=== PATIENT | female | born 1975 | race Caucasian/White ===

== ENCOUNTER 2022-01-07 17:11 | Emergency (ER) | payer OTHER, SELFPAY ==
[2022-01-07 17:19] VITALS: BP 155/92; PULSE 78; RESP 18; TEMP 36.8; O2SAT 98; BMI 32.5
[2022-01-07] MEDS: ACETAMINOPHEN 325 MG TABLET 975 MG PO (18:15)
--- NOTE | 2022-01-07 18:50 | ED.WOUNDLAC ---
HPI - Wound/Laceration <Martin Weaver PA-C - Last Filed: 01/07/22 19:17> General Chief Complaint: Wound/Laceration Stated Complaint: Left leg lac Time Seen by Provider: 01/07/22 17:35 Source: patient Mode of arrival: Ambulatory History of Present Illness HPI narrative: Patient is a 46-year-old female who reports to the ER today complaining of a cut to her left leg. Patient states she cut her leg on a toilet earlier today. patient states the toilet was plastic and did not contain any cement or metal. Patient also states her last tetanus shot was about 3 years ago. Patient denies any numbness or tingling in the leg and denies any other concerns. Location: other (Left leg) Extremity Location: Left: lower leg Review of Systems <Martin Weaver PA-C - Last Filed: 01/07/22 19:17> Review of Systems ROS Unobtainable: All systems reviewed & are unremarkable except as noted in HPI and below Patient History <Martin Weaver PA-C - Last Filed: 01/07/22 19:17> Social History Smoking Status: Never smoker Smoking Status: Never smoker alcohol intake frequency: a few times a week Alcohol type: wine Exam <Martin Weaver PA-C - Last Filed: 01/07/22 19:17> Initial Vital Signs Initial Vital Signs: Vital Signs Temperature 98.2 F 01/07/22 17:19 Pulse Rate 78 01/07/22 17:19 Respiratory Rate 18 01/07/22 17:19 Blood Pressure 155/92 H 01/07/22 17:19 Pulse Oximetry 98 01/07/22 17:19 Oxygen Delivery Method 01/07/22 17:19 Skin Other: Patient has 6 cm lateral laceration to the left lateral lower leg. Areas about 3-4 inches above the lateral malleolus. Depth of laceration is about 0.5-1 cm. Area has minimal swelling and minor drainage. <NNEKA Odell - Last Filed: 01/07/22 19:28> Initial Vital Signs Initial Vital Signs: Vital Signs Temperature 98.2 F 01/07/22 17:19 Pulse Rate 78 01/07/22 17:19 Respiratory Rate 18 01/07/22 17:19 Blood Pressure 155/92 H 01/07/22 17:19 Pulse Oximetry 98 01/07/22 17:19 Oxygen Delivery Method 01/07/22 17:19 <Nirav Overton MD - Last Filed: 01/13/22 04:56> Initial Vital Signs Initial Vital Signs: Vital Signs Temperature 98.2 F 01/07/22 17:19 Pulse Rate 78 01/07/22 17:19 Respiratory Rate 18 01/07/22 17:19 Blood Pressure 155/92 H 01/07/22 17:19 Pulse Oximetry 98 01/07/22 17:19 Oxygen Delivery Method 01/07/22 17:19 Procedures <Martin Weaver PA-C - Last Filed: 01/07/22 19:17> Laceration Repair Laceration 1: Time of procedure: 18:56 Site: lower extremity Side (If applicable): left Size (cm): 6 Description: other (Lateral laceration) Depth: simple, single layer Local Anesthetic: lidocaine 2% and with epi Amount of anesthesia used (mL): 4 Skin layer closed with: other (Monosof) Skin layer suture size: other (2) Number of sutures: 6 Technique: simple, interrupted Course <Martin Weaver PA-C - Last Filed: 01/07/22 19:17> Orders Ordered: Discontinued Medications Acetaminophen (Acetaminophen 325 Mg Tablet) 975 mg PO NOW ONE Stop: 01/07/22 17:34 Last Admin: 01/07/22 18:15 Dose: 975 mg Documented By: VAL Bacitracin (Bacitracin Oint 0.9 Gm Pckt) 1 applic TOP NOW ONE Stop: 01/07/22 18:44 Last Admin: 01/07/22 19:01 Dose: 1 applic Documented By: IGLESIA Lidocaine/Epinephrine (Lidocaine 2% W/Epi Inj) 1 ml INJ INTRA-OP ONE Stop: 01/07/22 17:49 Last Admin: 01/07/22 19:02 Dose: 1 ml Documented By: IGLESIA Vital Signs Vital signs: Vital Signs - 8 hr 01/07/22 17:19 Temperature 98.2 F Pulse Rate 78 Respiratory Rate 18 Blood Pressure 155/92 H Pulse Oximetry 98 Oxygen Delivery Method Room Air <NNEKA Odell - Last Filed: 01/07/22 19:28> Orders Ordered: Discontinued Medications Acetaminophen (Acetaminophen 325 Mg Tablet) 975 mg PO NOW ONE Stop: 01/07/22 17:34 Last Admin: 01/07/22 18:15 Dose: 975 mg Documented By: VAL Bacitracin (Bacitracin Oint 0.9 Gm Pckt) 1 applic TOP NOW ONE Stop: 01/07/22 18:44 Last Admin: 01/07/22 19:01 Dose: 1 applic Documented By: IGLESIA Lidocaine/Epinephrine (Lidocaine 2% W/Epi Inj) 1 ml INJ INTRA-OP ONE Stop: 01/07/22 17:49 Last Admin: 01/07/22 19:02 Dose: 1 ml Documented By: IGLESIA Vital Signs Vital signs: Vital Signs - 8 hr 01/07/22 17:19 Temperature 98.2 F Pulse Rate 78 Respiratory Rate 18 Blood Pressure 155/92 H Pulse Oximetry 98 Oxygen Delivery Method Room Air <Nirav Overton MD - Last Filed: 01/13/22 04:56> Orders Ordered: Discontinued Medications Acetaminophen (Acetaminophen 325 Mg Tablet) 975 mg PO NOW ONE Stop: 01/07/22 17:34 Last Admin: 01/07/22 18:15 Dose: 975 mg Documented By: VAL Bacitracin (Bacitracin Oint 0.9 Gm Pckt) 1 applic TOP NOW ONE Stop: 01/07/22 18:44 Last Admin: 01/07/22 19:01 Dose: 1 applic Documented By: IGLESIA Lidocaine/Epinephrine (Lidocaine 2% W/Epi Inj) 1 ml INJ INTRA-OP ONE Stop: 01/07/22 17:49 Last Admin: 01/07/22 19:02 Dose: 1 ml Documented By: IGLESIA Vital Signs Vital signs: Vital Signs - 8 hr 01/07/22 17:19 Temperature 98.2 F Pulse Rate 78 Respiratory Rate 18 Blood Pressure 155/92 H Pulse Oximetry 98 Oxygen Delivery Method Room Air MDM - Wound/Laceration <Martin Weaver PA-C - Last Filed: 01/07/22 19:17> Medical Records Medical records narrative: Patient is a 46-year-old female who presents to the emergency room today with complaint of laceration to her left leg. Patient had a left leg laceration of about 6 cm in lateral length. The patient states she had a tetanus shot about 3 years ago no other concerns. The area was cleaned and 6 interrupted <Maddie Francisco, [facility] - Last Filed: 01/07/22 19:28> [facility] Narrative Medical decision making narrative: Patient is a 46-year-old female who presents to the emergency room today with complaint of laceration to her left leg. Patient had a left leg laceration of about 6 cm in lateral length. The patient states she had a tetanus shot about 3 years ago no other concerns. The area was cleaned and 6 interrupted sutures were placed without complications. Dressing was placed by ER staff and patient was advised to return in seven days to the ER or urgent care for suture removal. Patient is appropriate and amenable to discharge home. Vital signs are stable on repeat examination is unremarkable. Patient has been informed of results. Patient has been given strict return to ER precautions for any new or worsening symptoms. Patient understands to follow up closely with outpatient providers as instructed. Patient understands plan and agrees to discharge home. All questions and concerns answered at this time. Discharge Plan Departure Patient Disposition: Home Clinical Impression: Laceration Instructions: DI for Laceration Repair Activity Restrictions/Additional Instructions: *You have been diagnosed with a laceration *What to do: *Please continue to take your regular medications as directed. [ ] New medication prescriptions sent to your pharmacy: [ ] [ ] New medication written as a paper prescription [ x] No new medications given *Please follow up with your primary care provider in 2-3 days, call for an appointment. Let them know you were seen in the Emergency Department and that we asked that you be seen for follow-up. We will electronically transmit a record of today's note if your PCP is in our system *If you do not have a primary care provider please contact [phone] to establish care with one of [facility] primary care providers. *Return to Emergency Department if you should have any new, worsening or concerning symptoms, such as [fever greater than 101F, chills, worsening pain, persistent vomiting or other bothersome symptoms] Please refrain from any activity that would cause stress or aggravation to the area. Use antibiotic ointment twice a day until you have your sutures removed until it heals. Please keep the area clean and covered while you have sutures in with at least a Band-Aid. Please return to the emergency room for any emergent concerns that may arise. You can return to the ER or Walk in clinic to have sutures removed. Referrals: Miscellaneous,Doctor, [Primary Care Provider] - Visit Report Forms: Patient Portal/API <Nirav Overton MD - Last Filed: 01/13/22 04:56> Cosign ED Attending Ieshaature Attestation: I was immediately available in the department for consultation. ?This documentation has been reviewed and I agree with assessment and plan. Supervised by Nirav Overton MD
[2022-01-07] MEDS: BACITRACIN OINT 0.9 GM PCKT 1 APPLIC TOP (19:01)
[2022-01-07] MEDS: LIDOCAINE 2% W/EPI INJ 1 ML INJ (19:02)
== END 2022-01-07 19:57 | disposition home or self-care (01) ==
PROVIDERS: Emergency Provider Physician Assistant
DX: S81.812A Laceration without foreign body, left lower leg, initial encounter (principal); W26.9XXA Contact with unspecified sharp object(s), initial encounter
CPT/HCPCS: 12002; 99283

== ENCOUNTER → 2023-08-13 14:51 | Outpatient (CLI) | payer OTHER, SELFPAY ==
--- NOTE | 2023-08-13 14:54 | DI.MG.S_ITS ---
BILATERAL DIGITAL SCREENING MAMMOGRAM 3D/2D WITH CAD: 08/13/2023 CLINICAL: Routine screening. Baseline exam. No prior exams were available for comparison. Both breasts are heterogeneously dense, which may obscure small masses (category c / 51-75% glandular tissue). Current study was also evaluated with a Computer Aided Detection (CAD) system. There is an asymmetry in the right breast middle depth upper region seen on the mediolateral oblique view only. No other significant masses, calcifications, or other findings are seen in either breast. IMPRESSION: INCOMPLETE: NEEDS ADDITIONAL IMAGING EVALUATION The asymmetry in the right breast is indeterminate. A diagnostic mammogram and ultrasound is recommended. Based on the Tyrer Cuzick model (a risk assessment model) the patient's lifetime risk is 13.5% and her 10 year risk is 2.6%. According to the ACR, ACS, and NCCN guidelines, an annual breast MRI exam along with mammogram is recommended if the patient's lifetime risk is 20% or greater. This exam was interpreted at Station ID: [id number]. NOTE: For mammograms, a report in lay terms will be sent to the patient. Approximately 15% of breast malignancies will not be visualized mammographically. In the management of a palpable breast mass, a negative mammogram must not discourage biopsy of a clinically suspicious lesion. Electronically Signed By: Stephanie Lazaro M.D., PH.D eb/:08/13/2023 22:31:24 letter sent: Additional Imaging Needed ACR BI-RADS Category 0: Incomplete 3340F
== END ==
LOC: MAMMO 14:52
PROVIDERS: Referring Provider Student in an Organized Health Care Education/Training Program; Visit Provider Student in an Organized Health Care Education/Training Program
DX: Z12.31 Encounter for screening mammogram for malignant neoplasm of breast (principal); R92.333 Mammographic heterogeneous density, bilateral breasts
CPT/HCPCS: 77063; 77067

== ENCOUNTER → 2023-09-03 09:46 | Outpatient (CLI) | payer OTHER, SELFPAY ==
--- NOTE | 2023-09-03 09:47 | DI.US.S_ITS ---
LIMITED ULTRASOUND OF RIGHT BREAST: 09/03/2023 CLINICAL: Patient returns today to evaluate an asymmetry in the right breast. Comparison is made to exams dated: 09/03/2023 mammogram and 08/13/2023 mammogram - [facility]. Color flow and real-time ultrasound of the right breast 10-2 o'clock region were performed. Mars scale images of the real-time examination were reviewed. No sonographic finding to correspond to the resolved asymmetry at the 10-2 o'clock position on screening mammography. Incidentally, a cluster of two irregular, thin walled, anechoic cysts in the right breast at 10 o'clock middle depth are noted. Color flow imaging demonstrates that there is no vascularity present. There is a mammogram correlate of circumscribed asymmetries. IMPRESSION: PROBABLY BENIGN No sonographic finding corresponding to the resolved mammogram asymmetry. A follow-up right mammogram and possible ultrasound in 6 months is recommended to demonstrate stability. The incidental cluster of irregular cysts in the right breast is benign. No dedicated follow up needed. Findings and recommendations were conveyed to the patient at time of exam. This exam was interpreted at Station ID: [id number]. Electronically Signed By: Luz mccray/:09/03/2023 12:03:23 letter sent: Followup Recommended Ultrasound BI-RADS: 3 Probably benign
--- NOTE | 2023-09-03 09:47 | DI.MG.S_ITS ---
UNILATERAL RIGHT DIGITAL DIAGNOSTIC MAMMOGRAM 3D/2D WITH ADDITIONAL VIEWS: 09/03/2023 CLINICAL: Additional evaluation requested from prior study. Comparison is made to exam dated: 08/13/2023 mammogram - [facility]. The right breast is heterogeneously dense, which may obscure small masses (category c / 51-75% glandular tissue). The asymmetry in the right breast middle depth superior region seen previously on the mediolateral oblique view only is no longer seen and is most consistent with fibroglandular tissue. Incidental circumscribed low density asymmetries are seen at a middle depth. No other significant masses or calcifications are seen in the breast. IMPRESSION: INCOMPLETE: NEEDS ADDITIONAL IMAGING EVALUATION Resolution of screening mammography abnormality with additional views. Ultrasound evaluation to confirm resolution is recommended and was performed immediately following this exam. Based on the Tyrer Cuzick model (a risk assessment model) the patient's lifetime risk is 14.4% and her 10 year risk is 2.8%. According to the ACR, ACS, and NCCN guidelines, an annual breast MRI exam along with mammogram is recommended if the patient's lifetime risk is 20% or greater. This exam was interpreted at Station ID: [id number]. NOTE: For mammograms, a report in lay terms will be sent to the patient. Approximately 15% of breast malignancies will not be visualized mammographically. In the management of a palpable breast mass, a negative mammogram must not discourage biopsy of a clinically suspicious lesion. Electronically Signed By: Luz mccray/:09/03/2023 11:55:41 ACR BI-RADS Category 0: Incomplete 3340F
== END ==
PROVIDERS: PCP Student in an Organized Health Care Education/Training Program; Referring Provider Student in an Organized Health Care Education/Training Program; Visit Provider Student in an Organized Health Care Education/Training Program
DX: R92.8 Other abnormal and inconclusive findings on diagnostic imaging of breast (principal); N60.01 Solitary cyst of right breast
CPT/HCPCS: 76642; 77065; G0279

== ENCOUNTER → 2024-07-18 13:33 | Outpatient (CLI) | payer OTHER, SELFPAY ==
--- NOTE | 2024-07-18 | DI.MG.S_ITS ---
BILATERAL DIGITAL DIAGNOSTIC MAMMOGRAM 3D/2D SHORT-TERM FOLLOW-UP: 07/18/2024 CLINICAL: Patient returns for a 12 month follow up of the right breast, due for bilateral exam. Comparison is made to exams dated: 09/03/2023 mammogram and 08/13/2023 mammogram - [facility]. The breasts are heterogeneously dense, which may obscure small masses (category c / 51-75% glandular tissue). The previously characterized benign cysts in the right breast upper outer quadrant on prior diagnostic imaging 09/03/2023 are stable. No other significant masses, calcifications, or other findings are seen in either breast. IMPRESSION: BENIGN There is no mammographic evidence of malignancy. A 1 year screening mammogram is recommended. Findings and recommendations were conveyed to the patient during today's evaluation. Based on the Tyrer Cuzick model (a risk assessment model) the patient's lifetime risk is 14.4% and her 10 year risk is 3.0%. According to the ACR, ACS, and NCCN guidelines, an annual breast MRI exam along with mammogram is recommended if the patient's lifetime risk is 20% or greater. This exam was interpreted at Station ID: [id number]. NOTE: For mammograms, a report in lay terms will be sent to the patient. Approximately 15% of breast malignancies will not be visualized mammographically. In the management of a palpable breast mass, a negative mammogram must not discourage biopsy of a clinically suspicious lesion. Electronically Signed By: Stephanie Lazaro M.D., Ph.D. eb/:07/18/2024 14:18:59 letter sent: Normal Exam ACR BI-RADS Category 2: Benign
== END ==
PROVIDERS: PCP Physician Assistant; Referring Provider Student in an Organized Health Care Education/Training Program; Visit Provider Student in an Organized Health Care Education/Training Program
DX: R92.8 Other abnormal and inconclusive findings on diagnostic imaging of breast (principal); R92.333 Mammographic heterogeneous density, bilateral breasts
CPT/HCPCS: 77066; G0279

== ENCOUNTER → 2025-03-23 13:28 | Outpatient (CLI) | payer OTHER, SELFPAY ==
--- NOTE | 2025-03-23 13:33 | DI.RAD.S_ITS ---
PROCEDURE: XR CHEST 2V INDICATIONS: COUGH TECHNIQUE: 2 views of the chest were acquired. COMPARISON: None. FINDINGS: Surgical changes and devices: None. Lungs and pleura: Prominent interstitial markings. No pleural effusions or pneumothorax. Mediastinum: Mediastinal contours are normal. Heart size is normal. Bones and chest wall: No suspicious bony abnormalities. Soft tissues appear unremarkable. IMPRESSION: Prominent interstitial markings, may represent atypical or viral infection. Dictated by: Javi Gutiérrez M.D. on 03/23/2025 at 14:57 Approved by: Javi Gutiérrez M.D. on 03/23/2025 at 14:57
== END ==
PROVIDERS: PCP Physician Assistant; Referring Provider Internal Medicine; Visit Provider Internal Medicine
DX: R05.1 Acute cough (principal)
CPT/HCPCS: 71046